=== PATIENT | male | born 1960 | race Caucasian/White ===

== ENCOUNTER 2017-07-11 09:07 | Emergency (ER) | payer SELFPAY ==
[~2017-07-11] VITALS: Ht 167.6 cm; Wt 68.6 kg
[2017-07-11] MEDS ORDERED: ATOR20TA86 PO (09:16)
[2017-07-11] MEDS ORDERED: BLOOD PRESSURE PO (09:16)
[2017-07-11] MEDS ORDERED: HYDR25TA PO (09:30)
[2017-07-11 10:23] VITALS: BP 141/80
[2017-07-11] MEDS ORDERED: KETOROLAC TROMETHAMINE 60 MG/2 ML VIAL IM ONE (10:45)
== END 2017-07-11 10:54 | disposition home or self-care (01) ==
LOC: EMS 09:09
DX: S13.4XXA Sprain of ligaments of cervical spine, initial encounter (principal); S46.911A Strain of unspecified muscle, fascia and tendon at shoulder and upper arm level, right arm, initial encounter; I10 Essential (primary) hypertension; E78.00 Pure hypercholesterolemia, unspecified; V49.40XA Driver injured in collision with unspecified motor vehicles in traffic accident, initial encounter; Y93.89 Activity, other specified; Y92.89 Other specified places as the place of occurrence of the external cause; Y99.8 Other external cause status
CPT/HCPCS: 96372; 99283; J1885